=== PATIENT | male | born 1945 | race Caucasian/White ===

== ENCOUNTER → 2016-12-20 | Outpatient (CLI) | payer MEDICARE ==
--- NOTE | 2016-12-20 13:41 | XR ---
EXAMINATION TYPE: XR chest 2V DATE OF EXAM: 12/20/2016 COMPARISON: Prior chest x-ray 02/08/2011 HISTORY: Cough, wheezing and pneumonia TECHNIQUE: Frontal and lateral views of the chest are obtained. FINDINGS: Patient is rotated. There is no pleural effusion or pneumothorax seen. Strand-like densitie s at the left lung base is stable and likely reflects scarring. The cardiac silhouette size is stable . There are prominent lung volumes. There is bronchial wall thickening. The osseous structures are i ntact. IMPRESSION: Correlate for bronchitis, reactive airways disease.
== END | disposition home or self-care (01) ==
LOC: RADXRYALE 13:17
PROVIDERS: ATTEND Nurse Practitioner Family
DX: R05 Cough (principal); R06.2 Wheezing
CPT/HCPCS: 71020

== ENCOUNTER → 2023-05-17 | Outpatient (CLI) | payer MEDICARE ==
--- NOTE | 2023-05-20 09:21 | MR ---
EXAMINATION TYPE: MR Prostate wo/w con DATE OF EXAM: 05/17/2023 10:44 AM COMPARISON: None. CLINICAL INDICATION:Male, 77 years old with history of R97.20 ELEVATED PROSTATE SPECIFIC ANTIGEN; Niharika vated PSA TECHNIQUE: Multi-planar, multi-sequence imaging of the pelvis is performed prior to and following the uncomplicated administration of bolus intravenous gadolinium. CONTRAST: 12 Gadavist Interpretive Criteria: PI-RADS v2.1 SERUM PSA: 5.2 on 10/24/2022. 5.5 on 11/2021. SURGICAL PATHOLOGY: No data available. FINDINGS: Prostatic dimensions: 4.7 x 6.1 x 3.8 cm. Ellipsoid Volume:57.04 (PSA density=0.09 ng/mL/mL) CENTRAL GLAND (Central and Transition Zones/CZ+TZ): Left anterior central gland mid gland low T2/higher DWI/low ADC signal lesion measuring 21 x 17 mm. T here is arterial phase enhancement within this lesion. (PI-RADS 5) PERIPHERAL ZONE (PZ): Bilateral linear, indistinct wedgelike areas of low ADC, and low T2 signal, No evidence of masslike a bnormality, or localized perfusional hypervascularity, to further suggest a focus of clinically signi ficant prostate cancer. (PI-RADS 2) SEMINAL VESICLES (SV): Symmetric and unremarkable. PERIPROSTATIC TISSUES: Unremarkable. LYMPH NODES: No enlarged pelvic lymph node. REMAINING PELVIS: Bladder wall is within normal limits given distention. No abnormal free or organized intrapelvic fluid collection. No pathologic bowel dilation or mural thickening. Colonic diverticula are present. No hernia visualized OSSEOUS STRUCTURES: No suspicious osseous abnormality. IMPRESSION: 1. PI-RADS 5 lesion in the left anterior central mid gland measuring 21 x 17 mm. 2. Moderate BPH, estimated gland volume 57.04 mL. 3. No suspicious osseous lesion. No lymphadenopathy. No evidence of prostate adenocarcinoma involving the periprostatic tissues.
== END | disposition home or self-care (01) ==
LOC: RADMRIMAIN 09:20
PROVIDERS: ATTEND Urology
DX: N40.0 Benign prostatic hyperplasia without lower urinary tract symptoms (principal); R97.20 Elevated prostate specific antigen [PSA]
CPT/HCPCS: 72197; A9585

== ENCOUNTER → 2023-06-23 | Outpatient (CLI) | payer MEDICARE ==
[2023-06-23 20:07] LABS: Basophils # (A) 0.05 X 10*3/uL (0.00-0.10); Basophils % (A) 0.7 %; Eosinophils # (A) 0.33 X 10*3/uL (0.04-0.35); Eosinophils % (A) 4.6 %; HCT 45.1 % (39.6-50.0); HGB 14.7 g/dL (13.0-17.0); Lymphocytes # (A) 1.45 X 10*3/uL (0.90-5.00); Lymphocytes % (A) 20.2 %; MCHC 32.6 g/dL (32.0-37.0); MCV 95.1 FL (80.0-97.0); Monocytes # (A) 0.86 X 10*3/uL (0.20-1.00); NRBC Per 100 WBC 0 X 10*3/uL (0.00-0.01); Neutrophils # (A) 4.44 X 10*3/uL (1.80-7.70); Neutrophils % (A) 61.9 %; Platelet Count 167 X 10*3/uL (140-440); RBC 4.74 X 10*6/uL (4.40-5.60); RDW 14.4 % (11.5-14.5); WBC 7.17 X 10*3/uL (4.50-10.00)
[2023-06-23 21:27] LABS: BUN/Creat Ratio 18.33 Ratio (12.00-20.00); Blood Urea Nitrogen 16.5 mg/dL (9.0-27.0); Calcium 9.8 mg/dL (8.7-10.3); Chloride 102 mmol/L (96-109); Glucose 107 mg/dL (70-110); Potassium 4.4 mmol/L (3.5-5.5); Sodium 141 mmol/L (135-145)
== END | disposition home or self-care (01) ==
LOC: LABPAT 14:04
PROVIDERS: ATTEND Urology
DX: R97.20 Elevated prostate specific antigen [PSA] (principal); Z01.812 Encounter for preprocedural laboratory examination
CPT/HCPCS: 80048; 85025

== ENCOUNTER 2023-06-26 11:25 | Day surgery (SDC) | payer MEDICARE ==
[2023-06-23 09:50] VITALS: BMI 36.6
--- NOTE | 2023-06-24 14:29 | P.GSHP ---
History of Present Illness H&P Date: 06/24/23 Chief Complaint: Elevated PSA level Patient is a 77-year-old male whose father had prostate cancer. The patient's PSA level was most recently 5.50, identical to what it was in November 2021. Digital rectal examination reveals the prostate to be mildly enlarged, smooth but firm. MRI of the prostate reveals a prostate volume of 57 cc, but a PI-RADS 5 lesion was seen within the left central zone. He now comes for MRI fusion biopsies of the prostate. - Cardiovascular Cardiovascular: Reports high blood pressure - Genitourinary (Male) Genitourinary: Reports urinary frequency Past Medical History Past Medical History: Hyperlipidemia, Hypertension Additional Past Medical History / Comment(s): "irregular heart beat", "suspicio us spot on prostate" History of Any Multi-Drug Resistant Organisms: None Reported Past Surgical History: Appendectomy, Orthopedic Surgery Additional Past Surgical History / Comment(s): ankle surgery with plate and screws Past Anesthesia/Blood Transfusion Reactions: No Reported Reaction Past Psychological History: No Psychological Hx Reported Smoking Status: Never smoker Past Alcohol Use History: Occasional Past Drug Use History: None Reported - Past Family History Father Family Medical History: Cancer Additional Family Medical History / Comment(s): prostate CA Medications and Allergies Home Medications Medication Instructions Recorded Confirmed Type Aspirin [Adult Low Dose Aspirin EC] 81 mg PO DAILY 06/23/23 06/23/23 History Atorvastatin [Lipitor] 10 mg PO DAILY 06/23/23 06/23/23 History L.acidoph,Paracasei, B.lactis 1 each PO DAILY 06/23/23 06/23/23 History [Probiotic] Losartan Potassium 100 mg PO DAILY 06/23/23 06/23/23 History Sotalol [Betapace] 80 mg PO BID 06/23/23 06/23/23 History amLODIPine [Norvasc] 5 mg PO DAILY 06/23/23 06/23/23 History hydroCHLOROthiazide 12.5 mg PO DAILY 06/23/23 06/23/23 History Allergies Allergy/AdvReac Type Severity Reaction Status Date / Time No Known Allergies Allergy Verified 06/23/23 09:41 Surgical - Exam - General well developed, well nourished, no distress - Respiratory normal respiratory effort - Abdomen Abdomen: soft, non tender, no guarding, no rigid, no rebound - Genitourinary normal penis with no external lesions, testicles non-tender - Rectum Rectum: normal sphincter tone, no masses, other (Prostate mildly enlarged, smooth but firm) - Psychiatric oriented to time Assessment and Plan (1) Elevated prostate specific antigen [PSA] Status: Acute Code(s): R97.20 - ELEVATED PROSTATE SPECIFIC ANTIGEN [PSA] SNOMED Code(s): [id number] Plan: The patient will undergo MRI-Ultrasound fusion transrectal biopsies of the prostate. The procedure has been reviewed in detail with the patient. He has been made aware of potential risks, which include anesthesia, bleeding, and infection. He is also aware that a negative biopsy does not completely rule out prostate cancer.
[~2023-06-26 11:25] MED LIST: DEXAMETHASONE SOD PHOSPHATE 4 MG/ML 1 ML VIAL IV ONE; LACTATED RINGERS 1,000 ML IV SCH; ONDANSETRON 4 MG/2 ML VIAL IVP ONE; fentaNYL (PF) 50 MCG/ML 2 ML AMP IV PRN
[2023-06-26 12:11] VITALS: TEMP 98
[2023-06-26] MEDS: GENTAMICIN 40 MG/ML 2 ML VIAL IM PRN (12:12)
[2023-06-26] MEDS: LIDOCAINE 1% (10MG/ML) FOR IV START INTRADERMA ONE (12:20)
[2023-06-26] MEDS: LACTATED RINGERS 1,000 ML IV SCH (12:20)
[2023-06-26] MEDS: ONDANSETRON 4 MG/2 ML VIAL IVP ONE (12:21)
[2023-06-26] MEDS: DEXAMETHASONE SOD PHOSPHATE 4 MG/ML 1 ML VIAL IV ONE (12:22)
[2023-06-26] MEDS ORDERED: PROPOFOL 10 MG/ML 20 ML VIAL IV ONE (14:21)
[2023-06-26] MEDS ORDERED: MIDAZOLAM 2 MG/2 ML VIAL ONE (14:21)
[2023-06-26] MEDS ORDERED: fentaNYL (PF) 50 MCG/ML 2 ML AMP ONE (14:21)
--- NOTE | 2023-06-26 14:46 | P.OP ---
Date of Procedure: 06/26/23 Preoperative Diagnosis: Elevated PSA level Postoperative Diagnosis: Same Procedure(s) Performed: MRI ultrasound-guided fusion biopsies of the prostate Anesthesia: MAC Surgeon: Jake Mueller Estimated Blood Loss (ml): 5 IV fluids (ml): 200 Pathology: other (Prostate biopsies) Condition: stable Disposition: PACU Indications for Procedure: Patient is a 77-year-old male whose father had prostate cancer. The patient's PSA level was most recently 5.50, identical to what it was in November 2021. Digital rectal examination reveals the prostate to be mildly enlarged, smooth but firm. MRI of the prostate reveals a prostate volume of 57 cc, but a PI-RADS 5 lesion was seen within the left central zone. He now comes for MRI fusion biopsies of the prostate. Operative Findings: Biopsies obtained from the target lesion along with template biopsies. Description of Procedure: The patient was taken to the operating room and placed in the left lateral decubitus position. LUIS revealed the prostate to be mildly enlarged, firm but smooth. The [employer] transrectal ultrasound probe was placed intrarectally. It was then placed within the stand of the [employer] MRI/TRUS Fusion for Prostate Biopsy system. The prostate was imaged in both the axial and sagittal planes, revealing a prostate volume of 84.2 mL. Using the Biopty gun, 3 biopsies were obtained from the target lesion located within the left anterior fibromuscular stroma. The remaining 12 biopsies of the peripheral zone were obtained utilizing a standard template. Once the procedure was completed, the ultrasound probe was removed. The patient tolerated the procedure well was taken to the recovery room stable condition.
[2023-06-26 15:12] VITALS: BP 135/71; PULSE 61; RESP 17
== END 2023-06-26 15:41 | disposition home or self-care (01) ==
LOC: OR 11:25
PROVIDERS: ATTEND Urology
DX: C61 Malignant neoplasm of prostate (principal); I10 Essential (primary) hypertension; F10.90 Alcohol use, unspecified, uncomplicated; E78.5 Hyperlipidemia, unspecified; Z90.49 Acquired absence of other specified parts of digestive tract; Z98.890 Other specified postprocedural states; Z80.42 Family history of malignant neoplasm of prostate; Z79.82 Long term (current) use of aspirin; Z79.899 Other long term (current) drug therapy
CPT/HCPCS: 55700; 88305; J2250; J1580; J1100; J2405; J3010; J2704

== ENCOUNTER → 2023-07-28 | Outpatient (CLI) | payer MEDICARE ==
--- NOTE | 2023-08-05 07:35 | PE ---
EXAMINATION TYPE: PET CT fusion skull to thigh DATE OF EXAM: 07/28/2023 COMPARISON: None Prior PET/CT: None at this location HISTORY: Prostate cancer TECHNIQUE: Following the intravenous administration of 5.6 mCi of gallium 28, whole body images are performed from the skull base to the midthigh. Images are reviewed on the computer in the coronal, a xial, and sagittal planes. Reconstructed rotating images are created on independent workstation and reviewed on the computer. A localization and attenuation correction CT is performed in conjunction with the PET scan. DLP: 5-4.79 mGycm SCAN: Initial FINDINGS: NECK: Normal uptake is in the salivary glands THORAX: No abnormal uptake ABDOMEN: Normal uptake through the liver and spleen and bowel. PELVIS: No suspicious uptake. No discrete uptake below the level of the urinary bladder. Correlate wi th the patient's surgical history. OSSEOUS STRUCTURES: No abnormal uptake LOCALIZATION CT: No suspicious acute changes COMPARISON: None IMPRESSION: 1. No suspicious changes for metastatic disease. 2. Patient primary not clearly identified.
== END | disposition home or self-care (01) ==
LOC: RADPETMAIN 12:47
PROVIDERS: ATTEND Urology
DX: C61 Malignant neoplasm of prostate (principal)
CPT/HCPCS: 78815; A9596